=== PATIENT | male | born 1970 | race African-American/Black ===

== ENCOUNTER 2016-10-08 13:59 | Emergency (ER) | payer SELFPAY ==
--- NOTE | ~2016-10-08 | ER ---
PATIENT'S NAME: ANAND GONZALEZ [facility] AGE: 46 Y [address] ROOM: [place] [address] LOCATION: [facility] ADMIT DATE: 10/08/2016 ER/Outpatient Report DISCHARGE DATE: 10/08/2016 FAMILY PHYSICIAN: PHYSICIAN, NO ATTENDING PHYSICIAN: Orlin Lockwood Time of Arrival: 1359 hours. Time of Evaluation: 1403 hours. CHIEF COMPLAINT: Abdominal pain. HISTORY OF PRESENT ILLNESS: The patient is a 46-year-old male, who presents to the emergency department today with chief complaint of midepigastric abdominal pain. He reports this started about 6 hours prior to arrival. He reports he has a history of pancreatitis. This feels just like his previous pancreatitis. The patient reports that he went drinking last night. He is taking shots, woke up this morning and developed midepigastric abdominal pain. He denies any fevers. He does have some chills. No troubles urinating. No chest pain. Does have some nausea. No vomiting. The pain is sharp, it is currently 9/10 in severity. It does cause some slight shortness of breath and cough. He does report some mild diarrhea. PAST MEDICAL HISTORY: Pancreatitis. PAST SURGICAL HISTORY: None. SOCIAL HISTORY: The patient smokes 4 to 5 cigarettes a day for 30 years. He uses alcohol occasionally. Also does marijuana. ALLERGIES: NO KNOWN DRUG ALLERGIES. MEDICATIONS: None. PRIMARY CARE DOCTOR: None. REVIEW OF SYSTEMS: All systems are reviewed by myself and are negative with the exception of PATIENT'S NAME: ANAND GONZALEZ [facility] AGE: 46 Y [address] ROOM: [place] [address] LOCATION: [facility] ADMIT DATE: 10/08/2016 ER/Outpatient Report DISCHARGE DATE: 10/08/2016 FAMILY PHYSICIAN: PHYSICIAN, NO ATTENDING PHYSICIAN: Orlin Lockwood those discussed in the HPI and past medical history. PHYSICAL EXAMINATION: VITAL SIGNS: Weight 80 kg, blood pressure 167/97, pulse 57, respiratory rate 16, temperature 96.6, oxygen saturation 97% on room air. GENERAL: The patient is a 46-year-old male, who appears stated age, in mild acute distress secondary to abdominal pain. HEENT: Normocephalic, atraumatic. Pupils are equal, round, and reactive to light. Extraocular motions are intact. Nares are patent. TMs are clear. Oropharynx is clear. NECK: Supple. There is no nuchal rigidity. CARDIOVASCULAR: Bradycardic. No murmurs, rubs, or gallops. LUNGS: Clear to auscultation bilaterally. No wheezes, rales, or rhonchi. ABDOMEN: Soft, mild midepigastric tenderness to palpation. No rebound, rigidity, or guarding. Positive bowel sounds. MUSCULOSKELETAL: The patient moves all 4 extremities. SKIN: Warm and dry. There are no rashes or lesions noted. LABORATORY DATA AND X-RAYS: CBC is unremarkable except for hemoglobin of 11.3, hematocrit 35.2. CMP is unremarkable. LFTs normal. Amylase 246, lipase 2525. IMPRESSION: 1. Acute on chronic pancreatitis, alcohol induced. 2. Initial visit. EMERGENCY DEPARTMENT COURSE: The patient was brought back to the examination room. Seen and evaluated by myself. An IV is established. Laboratory analysis and imaging are obtained as described above. The patient was given a liter of normal saline. He was given 5 mg of morphine x2 as well as 4 mg of Zofran IV. He was given another liter of normal saline. He was also given 0.5 mg of Dilaudid IV. His abdominal exam was repeated. He has a nonsurgical abdominal exam at this time. I have discussed with him potential admission for IV fluids and pain medicine; however, the patient would like to go home at this time. I have discussed a clear liquid diet for the next 24 to 48 hours. I have also written a prescription for [place] and Zofran for home. I have discussed return to care instructions including worsening symptoms or any other concerns to return to the emergency department as soon as possible. The patient is agreeable without further questions at this time. DISPOSITION: The patient discharged home in good condition. PATIENT'S NAME: ANAND GONZALEZ [facility] AGE: 46 Y [address] ROOM: [place], [place] [address] LOCATION: [facility] ADMIT DATE: 10/08/2016 ER/Outpatient Report DISCHARGE DATE: 10/08/2016 FAMILY PHYSICIAN: PHYSICIAN, NO ATTENDING PHYSICIAN: Orlin Lockwood DO ISABEL HOWARD/alva /[id number] d: 10/08/16 2259 t: 10/09/16 0933, OUTPATIENT REPORT
[2016-10-08 14:40] LABS: BASOPHIL % 0.3 %; EOSINOPHIL # 0.1 K/uL (0.0-0.5); EOSINOPHIL % 0.8 %; HEMATOCRIT 35.2 % (37.0-53.0); HEMOGLOBIN 11.3 g/dL (12.0-17.0); IMMATURE GRANULOCYTE % 0.1 %; LYMPHOCYTE # 4.1 K/uL (0.8-4.0); LYMPHOCYTE % 43.9 %; MCH 25.6 pg (27.0-34.0); MCHC 32.1 gm/dL (32.0-36.5); MCV 79.8 fl (83.0-98.0); MONOCYTE # 0.5 K/uL (0.0-1.0); MONOCYTE % 5.6 %; MPV 10.8 fl (9.4-12.4); NEUTROPHIL # (ANC) 4.7 K/uL (1.4-9.0); NEUTROPHIL % 49.3 %; NRBC % 0 /100WBC (0-0.00); PLATELET COUNT 216 K/uL (150-450); RBC 4.41 M/uL (4.00-6.00); WBC 9.4 K/uL (4.0-11.0)
[2016-10-08 15:00] LABS: ALBUMIN 3.3 gm/dL (3.5-5.0); ALK PHOS 64 IU/L (33-138); ALT 58 IU/L (12-78); ANION GAP 10.5 (10.0-19.0); AST 26 IU/L (10-40); BLOOD UREA NITROGEN 14 mg/dL (6-24); CALCIUM 8.4 mg/dL (8.5-10.5); CHLORIDE 109 mMol/L (96-110); CO2 26 mMol/L (22-32); CREATININE 0.9 mg/dL (0.6-1.3); ESTIMATED GFR (MDRD EQUATION) > 60; POTASSIUM 3.5 mMol/L (3.7-5.1); SODIUM 142 mMol/L (135-145); TOTAL BILIRUBIN 0.3 mg/dL (0.0-1.5); TOTAL PROTEIN 6.5 g/dL (6.0-8.4)
[2016-10-09] MEDS ORDERED: TYLENOL EXTRA500 MG PO (12:33)
[2016-10-09] MEDS ORDERED: ADVIL200 MG PO (12:33)
[2016-10-09] MEDS ORDERED: NORCO 7.5-3251 EACH PO (12:34)
== END 2016-10-08 16:30 | disposition disaster alternative care site (69) ==
LOC: GMED 13:59
PROVIDERS: Emergency Medicine
DX: K85.20 Alcohol induced acute pancreatitis without necrosis or infection (principal); K86.0 Alcohol-induced chronic pancreatitis; F17.210 Nicotine dependence, cigarettes, uncomplicated
CPT/HCPCS: J1170; J2270; J2405; J7030

== ENCOUNTER 2016-10-09 07:51 | Inpatient (IN) | payer SELFPAY ==
[~2016-10-09] VITALS: Ht 172.7 cm; Wt 79.0 kg
--- NOTE | ~2016-10-09 | ER ---
PATIENT'S NAME: ANAND GONZALEZ [facility] AGE: 46 Y [address] ROOM: [address] [address] LOCATION: [facility] ADMIT DATE: 10/09/2016 ER/Outpatient Report DISCHARGE DATE: FAMILY PHYSICIAN: PHYSICIAN, NO ATTENDING PHYSICIAN: KENNETH GARCIA Time of Arrival: 0751 hours. Time of Exam: 0805 hours. IDENTIFICATION: A 46-year-old male. CHIEF COMPLAINT: Abdominal pain. HISTORY OF PRESENT ILLNESS: The patient is a 46-year-old male who was seen in the emergency room yesterday and diagnosed with pancreatitis, but did not wish to stay in the hospital, so was discharged with some pain medicine and Zofran. He has continued to have an increase in epigastric abdominal pain radiating around to his back. He was drinking 2 nights ago, shots with a friend for his birthday, but states he is not a regular drinker. He did feel chills, but no documented fever. He has had nausea, vomiting, and he did have some loose stools the night before last, but no loose stools since then. ALLERGIES: NO KNOWN DRUG ALLERGIES. CURRENT MEDICATIONS: 1. Hydrocodone. 2. Zofran. MEDICAL PROBLEMS: Pancreatitis x5, he has been hospitalized before in the past and he has been to the [facility] for the same thing. PRIOR SURGERIES: Denies. SOCIAL HISTORY: The patient is unemployed. Lives in [place]. Tobacco use, 1/4 pack per day plus cigars. Alcohol use, socially. Heavy use 2 nights ago. Drug use, marijuana. FAMILY HISTORY: PATIENT'S NAME: ANAND GONZALEZ [facility] AGE: 46 Y [address] ROOM: [address] [address] LOCATION: [facility] ADMIT DATE: 10/09/2016 ER/Outpatient Report DISCHARGE DATE: FAMILY PHYSICIAN: PHYSICIAN, NO ATTENDING PHYSICIAN: KENNETH GARCIA Mother with diabetes. Father secondary to an HI at age 50. REVIEW OF SYSTEMS: All systems reviewed and negative other than what is noted in the HPI. Specifically, the patient denies any chest pain. No cough or shortness of breath. PHYSICAL EXAMINATION: VITAL SIGNS: Height 5 feet 8 inches and weight 78.9 kg. Blood pressure 171/97, pulse 70, respirations 16, temperature 97, and saturations 98%. GENERAL: A 46-year-old male, in obvious distress. HEENT: Head: Normocephalic and atraumatic. Eyes: Pupils equal and reactive to light and accommodation. Extraocular movements intact. TMs not visualized. Nose: Mucosa pink. No lesions or drainage. Mouth: No lesions. Pharynx benign. NECK: Supple. No lymphadenopathy. No nuchal rigidity. LUNGS: Clear to auscultation. Breath sounds are equal. No rhonchi, wheezes, or rales. HEART: Regular rate and rhythm. No murmur, rub, or gallop. ABDOMEN: Bowel sounds present. Soft. Tender to palpation in mid epigastrium. No rebound or guarding. No CVA tenderness. SKIN: [place], warm, and dry. No lesions or rashes noted. NEURO: The patient is alert and oriented x4. Cranial nerves 2 through 12 grossly intact. Motor strength 5/5 throughout. Sensation is intact to light touch. No lower extremity edema. MUSCULOSKELETAL: No bony or joint abnormalities on examination. EMERGENCY ROOM COURSE: An IV was initiated. The patient was given Dilaudid 0.5 mg x2 for pain, Zofran 4 mg for nausea, 1 L of normal saline infused over 1 hour, then normal saline at 150 mL/h. UA negative. Sodium 141, potassium 4, chloride 108, CO2 24, BUN 6, creatinine 0.9, blood sugar 119. Liver enzymes normal. Amylase elevated at 519 which is up from 246 yesterday. Lipase elevated at 3407 which is up from 2525 yesterday. Hemoglobin 12.1, hematocrit 37.4, platelets 227, and white count 12.5 which is up from 9.4 yesterday. White blood cell differential is normal. IMPRESSION: Acute on chronic pancreatitis. PLAN: For admission per Dr. Garcia, hospitalist. The patient will remain n.p.o. with IV fluids at 150 mL/h of normal saline. Dilaudid has been used for pain control and Zofran for nausea. PATIENT'S NAME: ANAND GONZALEZ [facility] AGE: 46 Y [address] ROOM: [address] [address] LOCATION: [facility] ADMIT DATE: 10/09/2016 ER/Outpatient Report DISCHARGE DATE: FAMILY PHYSICIAN: PHYSICIANPAUL ATTENDING PHYSICIAN: KENNETH GARCIA MD BO MAGDALENO/alva /[id number] d: 10/09/161935 t: 10/10/16711, OUTPATIENT REPORT
--- NOTE | ~2016-10-09 | DS ---
PATIENT'S NAME: ANAND GONZALEZ [facility] AGE: 46 Y [address] ROOM: [place] [address] LOCATION: [facility] ADMIT DATE: 10/09/2016 Discharge Summary DISCHARGE DATE: 10/11/2016 FAMILY PHYSICIAN: PHYSICIAN, NO ATTENDING PHYSICIAN: Mango Sotomayor [facility] COURSE: The patient was admitted 2 days ago with abdominal pain, nausea, and vomiting. The patient mentioned that this story started 2 days before the admission. The patient has a history of recurrent pancreatitis, and this is his 6th or 7th attack. The patient was admitted to the hospital where a blood work revealed a lipase level of 2525 and amylase level of 246. The patient was kept n.p.o. and started on IV fluids and pain management. The patient started to show signs of improvement and diet was resumed and he started eating, and he tolerated the diet very well. The pain subsided and nausea and vomiting has resolved. The patient will be discharged home today. OBJECTIVE ON DISCHARGE: VITAL SIGNS: Temperature of 98, pulse of 83, respiratory rate of 14, blood pressure of 133/83, oxygen saturation of 93%. GENERAL APPEARANCE: Alert, awake, and oriented x3. GI: Nontender, nondistended, positive bowel sounds. CARDIOVASCULAR: S1 plus S2 plus 0. Regular rate and rhythm. RESPIRATORY: Clear to auscultation bilaterally. EMBEDDED SYSTEMS DEVELOPER: Grossly normal. SKIN: Not jaundiced. EXTREMITIES: No lower limb edema. DISCHARGE MEDICATIONS: None. CONDITION ON DISCHARGE: Stable. DISCHARGE DESTINATION: Home. FOLLOWUP: Follow up with primary care in 1 or 2 weeks. DIET: Advance as tolerated. EXERCISE: Advance as tolerated. DISCHARGE DIAGNOSIS: Acute pancreatitis secondary to alcohol use. NURYS LEBLANC MD PATIENT'S NAME: ANAND GONZALEZ [facility] AGE: 46 Y [address] ROOM: [place] [address] LOCATION: [facility] ADMIT DATE: 10/09/2016 Discharge Summary DISCHARGE DATE: 10/11/2016 FAMILY PHYSICIAN: PHYSICIAN, NO ATTENDING PHYSICIAN: Mango Sotomayor MG/modl /[id number] d: t: 10/11/162001, DISCHARGE SUMMARY
--- NOTE | ~2016-10-09 | DS ---
PATIENT'S NAME: ANAND GONZALEZ [facility] AGE: 46 Y [address] ROOM: [place] [address] LOCATION: [facility] ADMIT DATE: 10/09/2016 Discharge Summary DISCHARGE DATE: 10/11/2016 FAMILY PHYSICIAN: PHYSICIAN, NO ATTENDING PHYSICIAN: Mango Sotomayor [facility] COURSE: The patient was admitted 2 days ago with abdominal pain, nausea, and vomiting. The patient mentioned that this story started 2 days before the admission. The patient has a history of recurrent pancreatitis, and this is his 6th or 7th attack. The patient was admitted to the hospital where a blood work revealed a lipase level of 2525 and amylase level of 246. The patient was kept n.p.o. and started on IV fluids and pain management. The patient started to show signs of improvement and diet was resumed and he started eating, and he tolerated the diet very well. The pain subsided and nausea and vomiting has resolved. The patient will be discharged home today. OBJECTIVE ON DISCHARGE: VITAL SIGNS: Temperature of 98, pulse of 83, respiratory rate of 14, blood pressure of 133/83, oxygen saturation of 93%. GENERAL APPEARANCE: Alert, awake, and oriented x3. GI: Nontender, nondistended, positive bowel sounds. CARDIOVASCULAR: S1 plus S2 plus 0. Regular rate and rhythm. RESPIRATORY: Clear to auscultation bilaterally. HYDROLOGY PROFESSOR: Grossly normal. SKIN: Not jaundiced. EXTREMITIES: No lower limb edema. DISCHARGE MEDICATIONS: None. CONDITION ON DISCHARGE: Stable. DISCHARGE DESTINATION: Home. FOLLOWUP: Follow up with primary care in 1 or 2 weeks. DIET: Advance as tolerated. EXERCISE: Advance as tolerated. DISCHARGE DIAGNOSIS: Acute pancreatitis secondary to alcohol use. NURYS LEBLANC MD PATIENT'S NAME: ANAND GONZALEZ [facility] AGE: 46 Y [address] ROOM: [place] [address] LOCATION: [facility] ADMIT DATE: 10/09/2016 Discharge Summary DISCHARGE DATE: 10/11/2016 FAMILY PHYSICIAN: PHYSICIAN, NO ATTENDING PHYSICIAN: Mango Sotomayor MG/modl /[id number] d: 10/11/164 t: 11/20/16 1604, DISCHARGE SUMMARY
--- NOTE | ~2016-10-09 | HP ---
PATIENT'S NAME: ANAND GONZALEZ [facility] AGE: 46 Y [address] ROOM: [place] [address] LOCATION: [facility] ADMIT DATE: 10/09/2016 History & Physical DISCHARGE DATE: FAMILY PHYSICIAN: PHYSICIAN, NO ATTENDING PHYSICIAN: KENNETH GARCIA DATE OF SERVICE: CHIEF COMPLAINT: Abdominal pain, acute pancreatitis. HISTORY OF PRESENT ILLNESS: This is a 46-year-old male with known history of recurrent pancreatitis, presents with a 2 day history of epigastric dull abdominal pain with radiation to the back with associated nausea and vomiting. The patient also reports some subjective fever and chills. The patient reports that this is the 4th or 5th time in his lifetime that he has presented with similar complaints and was treated for acute pancreatitis repeatedly. The patient reports going out on a binge drinking the night before symptoms started and each time it appears that his symptoms tend to occur with alcohol use. The patient does not report daily alcohol use, although he did have a remote history of that but now only drinks occasionally. In any case, the patient otherwise denies any chest pain, shortness of breath, dizziness, lightheadedness, palpitations, any cough or sputum. The patient reports having 2 loose stools in the past 24 hours as well. PAST MEDICAL HISTORY: 1. Recurrent acute pancreatitis. 2. Tobacco dependence. SOCIAL HISTORY: The patient smokes 5-6 cigarettes daily and occasionally smokes marijuana and occasional alcohol use as well. FAMILY HISTORY: The patient has a history of diabetes in his mother. REVIEW OF SYSTEMS: All systems have been reviewed and were negative except as described in the HPI. PHYSICAL EXAMINATION: VITAL SIGNS: Reviewed and stable. The patient is afebrile. GENERAL: The patient is awake, alert, and oriented x3, in no significant distress, and comfortable. PATIENT'S NAME: ANAND GONZALEZ [facility] AGE: 46 Y [address] ROOM: [place] [address] LOCATION: [facility] ADMIT DATE: 10/09/2016 History & Physical DISCHARGE DATE: FAMILY PHYSICIAN: PHYSICIAN, NO ATTENDING PHYSICIAN: KENNETH GARCIA HEENT: Dry mucous membranes. No conjunctival pallor. Scleral icterus noted. SKIN: Without rash or lesions. CHEST: Clear to auscultation bilaterally. HEART: S1, S2. Regular rate and rhythm. ABDOMEN: Tenderness to palpation in the mid epigastrium, otherwise, soft with positive bowel sounds. NEUROLOGICAL: Grossly nonfocal. MUSCULOSKELETAL: No joint pain, effusion, or erythema noted. LABORATORY DATA: Significant labs, lipase greater than 3000. ASSESSMENT AND PLAN: 1. Acute pancreatitis. This is the patient's 4th or 5th episode in his life time and each time it appears to be related to alcohol use. We will treat with IV fluids, pain management, and slowly advance diet if he improves clinically. Since this is recurrent attack that he is having, I will go ahead and get a right upper quadrant ultrasound anyway. 2. Tobacco dependence. Counseled the patient at length on the need to quit tobacco as this can contribute to acute pancreatitis episodes. 3. Deep venous thrombosis prophylaxis. We will use subcu Lovenox. MD HENRI BIRD/alva /[id number] D: 524 T: 640 HISTORY & PHYSICAL
[2016-10-09 08:33] LABS: BASOPHIL % 0.2 %; EOSINOPHIL # 0.1 K/uL (0.0-0.5); EOSINOPHIL % 1.1 %; HEMATOCRIT 37.4 % (37.0-53.0); HEMOGLOBIN 12.1 g/dL (12.0-17.0); IMMATURE GRANULOCYTE % 0.2 %; LYMPHOCYTE # 3.1 K/uL (0.8-4.0); LYMPHOCYTE % 24.9 %; MCH 26.2 pg (27.0-34.0); MCHC 32.4 gm/dL (32.0-36.5); MCV 81.1 fl (83.0-98.0); MONOCYTE # 0.8 K/uL (0.0-1.0); MONOCYTE % 6.7 %; MPV 10.5 fl (9.4-12.4); NEUTROPHIL # (ANC) 8.3 K/uL (1.4-9.0); NEUTROPHIL % 66.9 %; NRBC % 0 /100WBC (0-0.00); PLATELET COUNT 227 K/uL (150-450); RBC 4.61 M/uL (4.00-6.00); RDW-CV 15.3 % (11.9-14.6); WBC 12.5 K/uL (4.0-11.0)
[2016-10-09 08:51] LABS: ALBUMIN 3.5 gm/dL (3.5-5.0); ALK PHOS 71 IU/L (33-138); ALT 46 IU/L (12-78); AST 21 IU/L (10-40); BLOOD UREA NITROGEN 6 mg/dL (6-24); CALCIUM 8.3 mg/dL (8.5-10.5); CHLORIDE 108 mMol/L (96-110); CO2 24 mMol/L (22-32); CREATININE 0.9 mg/dL (0.6-1.3); ESTIMATED GFR (MDRD EQUATION) > 60; SODIUM 141 mMol/L (135-145); TOTAL BILIRUBIN 0.5 mg/dL (0.0-1.5); TOTAL PROTEIN 7.2 g/dL (6.0-8.4)
[2016-10-09 09:37] LABS: BILIRUBIN URINE NEGATIVE (NEGATIVE); BLOOD URINE NEGATIVE /UL (NEGATIVE); GLUCOSE URINE NEGATIVE (NEGATIVE); KETONE URINE NEGATIVE (NEGATIVE); LEUKOCYTES URINE NEGATIVE /UL (NEGATIVE); NITRITE URINE NEGATIVE (NEGATIVE); PROTEIN URINE NEGATIVE (NEGATIVE); SPEC GRAVITY URINE 1.005 (1.003-1.035); UROBILINOGEN URINE NORMAL (NORMAL)
[2016-10-09 09:45] LABS: COLOR URINE STRAW (YELLOW); TURBIDITY URINE CLEAR (CLEAR)
[2016-10-09] MEDS ORDERED: ADVIL200 MG PO (12:33)
[2016-10-09] MEDS ORDERED: TYLENOL EXTRA500 MG PO (12:33)
[2016-10-09] MEDS ORDERED: NORCO 7.5-3251 EACH PO (12:34)
[2016-10-11 07:00] LABS: BASOPHIL % 0.2 %; EOSINOPHIL # 0.2 K/uL (0.0-0.5); EOSINOPHIL % 1.4 %; HEMATOCRIT 34.5 % (37.0-53.0); IMMATURE GRANULOCYTE % 0.2 %; LYMPHOCYTE # 3.6 K/uL (0.8-4.0); LYMPHOCYTE % 29.6 %; MCH 25.5 pg (27.0-34.0); MCHC 31.9 gm/dL (32.0-36.5); MONOCYTE # 1.2 K/uL (0.0-1.0); MONOCYTE % 9.9 %; MPV 10.7 fl (9.4-12.4); NEUTROPHIL # (ANC) 7.1 K/uL (1.4-9.0); NEUTROPHIL % 58.7 %; NRBC % 0 /100WBC (0-0.00); PLATELET COUNT 192 K/uL (150-450); RBC 4.31 M/uL (4.00-6.00); RDW-CV 14.5 % (11.9-14.6); WBC 12.1 K/uL (4.0-11.0)
[2016-10-11 07:15] LABS: ANION GAP 13.9 (10.0-19.0); BLOOD UREA NITROGEN 6 mg/dL (6-24); CALCIUM 8.5 mg/dL (8.5-10.5); CHLORIDE 112 mMol/L (96-110); CO2 21 mMol/L (22-32); CREATININE 0.9 mg/dL (0.6-1.3); ESTIMATED GFR (MDRD EQUATION) > 60; POTASSIUM 3.9 mMol/L (3.7-5.1); SODIUM 143 mMol/L (135-145)
== END 2016-10-11 13:30 | disposition disaster alternative care site (69) | DRG 440 ==
LOC: GMED 07:51 → G3N 10:02
PROVIDERS: Family Medicine; ADMIT Internal Medicine
DX: K85.90 Acute pancreatitis without necrosis or infection, unspecified (principal); F12.929 Cannabis use, unspecified with intoxication, unspecified; F17.210 Nicotine dependence, cigarettes, uncomplicated; K86.1 Other chronic pancreatitis; K86.81 Exocrine pancreatic insufficiency
CPT/HCPCS: J1170; J1650; J2270; J2405; J7030